=== PATIENT | female | born 1980 ===

== ENCOUNTER 2019-01-23 11:17 | Emergency (ER) ==
[2019-01-23] MEDS ORDERED: SODIUM CHLORIDE 0.9% 1000ML 1,000 ML IV STA (11:20)
[2019-01-23] MEDS ORDERED: MECLIZINE HCL 12.5 MG TAB PO ONE (11:30)
--- NOTE | 2019-01-23 11:38 | NUR ---
NO ANSWER FROM [facility] WHEN NAME CALLED OUT
== END 2019-01-23 12:01 | disposition home or self-care (01) ==
LOC: ER 11:17
DX: R55 Syncope and collapse (principal)